=== PATIENT | female | born 1950 | race Caucasian/White ===

== ENCOUNTER 2021-10-06 16:13 | Emergency (ER) | payer OTHER ==
[~2021-10-06] VITALS: Ht 154.9 cm; Wt 74.8 kg
[2021-10-06 16:27] VITALS: BP 145/62
--- NOTE | 2021-10-06 16:38 | NUR ---
PATIENT AMBULATED TO BED 11 WITH STEADY/EVEN GAIT.
[2021-10-06] MEDS ORDERED: NACL 0.9% 1,000 ML IV ONE (16:50)
[2021-10-06] MEDS ORDERED: KETOROLAC 30 MG/ML VIAL IVP ONE (16:50)
--- NOTE | 2021-10-06 17:26 | NUR ---
70 Y/O FEMALE BIB SELF C/O PAIN IN THE RIGHT FLANK SHARP RADIATING TO THE ABDOMEN X3DAYS NAUSEA NOTED, NO VOMITING OR DIARRHEA. DENIES ANY PAIN/BURNING DURING URINATION. TOOK TYLENOL FOR PAIN AT 2PM WITH MINIMAL RELIEF. NKA PMH: LUNG CANCER, CYST BY THE THYROID, GERD, HTN, GALLBLADDER REMOVAL, HYSTERECTOMY
--- NOTE | 2021-10-06 17:26 | NUR ---
DR GARCIA AT BEDSIDE
--- NOTE | 2021-10-06 17:26 | NUR ---
PT STATES DECREASE IN PAIN FROM 8/10 TO 2/10
[2021-10-06] MEDS ORDERED: ONDA8TAB87 PO (17:38)
[2021-10-06] MEDS ORDERED: IBUP-2213 PO (17:38)
[2021-10-06] MEDS ORDERED: TAMS0.4C96 PO (17:38)
[2021-10-06] MEDS ORDERED: ACET-8386 PO (17:38)
--- NOTE | 2021-10-06 18:34 | NUR ---
Patient discharged with v/s stable. Written and verbal after care instructions ABOUT FLANK PAIN given and explained. Patient alert, oriented and verbalized understanding of instructions. Ambulatory with steady gait. All questions addressed prior to discharge. ID band removed. Patient advised to follow up with PMD. Rx of ZOFRAN, IBUPROFEN, HYDROCODONE/ACETAMINOPHEN 5-325, TAMSULIN given. Patient educated on indication of medication including possible reaction and side effects. Opportunity to ask questions provided and answered.
== END 2021-10-06 18:34 | disposition home or self-care (01) ==
LOC: MED 16:13
DX: R10.9 Unspecified abdominal pain (principal); R11.0 Nausea; I10 Essential (primary) hypertension; Z98.890 Other specified postprocedural states; Z90.49 Acquired absence of other specified parts of digestive tract; Z90.710 Acquired absence of both cervix and uterus; Z85.118 Personal history of other malignant neoplasm of bronchus and lung
CPT/HCPCS: 81002; 96361; 96374; 99283; J1885; J7030